=== PATIENT | female | born 1970 | race Caucasian/White ===

== ENCOUNTER 2024-03-03 01:22 | Emergency (ER) | payer OTHER, SELFPAY ==
[2024-03-03 01:25] VITALS: BP 134/100
[2024-03-03 02:48] LABS: % Basophils 0.4 % (0-2); % Eosinophils 1.7 % (0-6); % Immature Granulocytes 0.2 % (0-0.5); % Lymphocytes 18.7 % (20.5-51.1); % Monocytes 5.6 % (1.7-9.3); % Neutrophils 73.4 % (42.2-75.2); Absolute Basophils 0.1 10^3/uL (0-0.2); Absolute Eosinophils 0.2 10^3/uL (0-0.7); Absolute Lymphocytes 2.3 10^3/uL (1.2-3.4); Absolute Monocytes 0.7 10^3/uL (0.1-0.6); Absolute Neutrophils 8.8 10^3/uL (1.4-6.5); Hematocrit 37.7 % (37.0-47.0); Hemoglobin 12.2 g/dL (12.0-16.0); Mean Corp Hgb Conc. 32.4 g/dL (33.0-37.0); Mean Corpuscular Hgb 25.9 pg (27.0-31.0); Mean Platelet Volume 10.1 fL (7.4-10.4); Nucleated Red Blood Cells % 0 %; Platelet Count 250 10^3/uL (130-400); Red Blood Cell Count 4.71 10^6/uL (4.20-5.40); Red Cell Dist. Width 14.3 % (11.5-14.5); White Blood Cell Count 12.1 10^3/uL (4.8-10.8)
[2024-03-03 03:07] LABS: ALT (SGPT) 28 U/L (0-35); AST (SGOT) 19 U/L (14-36); Albumin 4.2 g/dl (3.5-5.0); Alkaline Phosphatase 119 U/L (38-126); Blood Urea Nitrogen 18 mg/dl (7-17); Carbon Dioxide 25 mmol/L (22-30); Chloride 103 mmol/L (98-107); Glucose 109 mg/dl (70-99); Potassium 4.1 mmol/L (3.5-5.1); Sodium 139 mmol/L (135-145); Total Bilirubin 0.5 mg/dl (0.2-1.3); Total Protein 7.1 g/dl (6.3-8.2); eGFR > 60.00
[2024-03-03 03:12] LABS: Troponin I < 0.012 ng/ml
[2024-03-03 04:22] VITALS: BMI 35.2
--- NOTE | 2024-03-03 04:24 | EDRN ---
Around 0100, pt woke and had chest pain described as pressure. Pt with hx of indigestion but reports this felt different. Pt had chills. Pain is still present but better, rated as 6/10. Pt took 1 baby aspirin. Daughter adds pt had chest pain
the day before and also took a baby aspirin for that and it went away. Pt still has a cough from bronchitis she had 10 days ago. Pt points to mid upper and LUQ abdomen when asked if she has abd pain. No sob, n/v/d/c, urinary symptoms. Pt feels
her mouth is dry and has a bitter taste. Pt had turkey sandwich, glass of wine and orange/cranberry cake last night.
[2024-03-03 04:31] VITALS: BP 136/73
[2024-03-03 05:00] VITALS: BP 123/71
[2024-03-03 06:00] VITALS: BP 114/65
[2024-03-03 07:00] VITALS: BP 111/68
--- NOTE | 2024-03-03 07:15 | EDRN ---
Susan Bella PA in room w/pt at this time.
--- NOTE | 2024-03-03 07:25 | EDRN ---
Repeat troponin drawn and sent.
[2024-03-03 08:00] VITALS: BP 126/72
[2024-03-03 08:03] LABS: Troponin I < 0.012 ng/ml
--- NOTE | 2024-03-03 08:19 | ED.GENMED ---
History of Present Illness
General
Chief Complaint: Chest Pain
Time Seen by Provider: 03/03/24 07:09
History of Present Illness
History of Present Illness:
53-year-old female presents to the emergency department for evaluation of chest discomfort beginning at 1 AM and waking her up from sleep. She notes that for the past week to 2 weeks she has been dealing with 'bronchitis', was treated by urgent
care last week with steroids and inhalers. Denies any fevers but did have chills overnight. Chest pain has nearly subsided at this time. No nausea vomiting or diarrhea. Non-smoker
Review of Systems
Review of Systems
Allergies reviewed?: Yes
All Other Systems: ROS reviewed and negative except as documented in HPI and ROS
Phy Exam
Physical Exam
Physical Exam:
GEN: Well appearing, NAD, WDWN
HEENT: Oral mucosa moist, no scleral icterus
Cardiac: Regular rate and rhythm, no murmurs
Lung: No respiratory distress, no tachypnea, lungs clear to auscultation bilaterally
MSK: No gross deformity or injuries
Skin: Good color, no pallor or jaundice, no rashes
Neuro: AO x3, moves all extremities freely
Psych: Calm, cooperative
Scores
Heart Score for Chest Pain Patients
STEMI patient?: No
History: Slightly or Non-Suspicious
ECG: Normal
Age: >45 - <65 years
Risk Factors: 1 or 2 Risk Factors
Troponin: </= Normal Limit
Heart Score for Chest Pain Patients: 2
Heart Score Risk: 2.5% MACE over next 6 weeks
Course
Orders/Labs/Results
Orders:
Orders
03/03/24 01:23
Electrocardiogram (*1) Urgent
Reason for Study: Shortness of Breath
Chest [CR Chest - 2 Views ] Urgent
Comment:
Reason For Exam: SOB, RECENT BRONCHITIS
03/03/24 01:24
EKG- Treatment ONCE
03/03/24 02:29
Complete Blood Count/With Diff Urgent
Comprehensive Metabolic Panel Urgent
Troponin I Urgent
03/03/24 07:20
Electrocardiogram (*1) Urgent
Reason for Study: Chest Pain
EKG- Treatment ONCE
03/03/24 07:29
Troponin I Urgent
Abnormal Lab Results
03/03/24
02:29
WBC 12.1 H 10^3/uL
(4.8-10.8)
MCV 80.0 L fL
(81.0-99.0)
MCH 25.9 L pg
(27.0-31.0)
MCHC 32.4 L g/dL
(33.0-37.0)
Absolute Neuts (auto) 8.8 H 10^3/uL
(1.4-6.5)
Absolute Monos (auto) 0.7 H 10^3/uL
(0.1-0.6)
Lymphocytes % 18.7 L %
(20.5-51.1)
BUN 18 H mg/dl
(7-17)
Glucose 109 H mg/dl
(70-99)
03/03/24 02:29
03/03/24 02:29
Vital Signs
Initial and Last Documented VS:
Initial Vital Signs
Temp Pulse Resp BP Pulse Ox
99 F 86 24 134/100 98
03/03/24 01:25 03/03/24 01:25 03/03/24 01:25 03/03/24 01:25 03/03/24 01:25
Last Documented Vital Signs
Temp Pulse Resp BP Pulse Ox
98.6 F 77 16 126/72 97
03/03/24 04:35 03/03/24 08:00 03/03/24 08:00 03/03/24 08:00 03/03/24 08:00
MDM/Problems Addressed
MDM/Problems Addressed:
EKG initial and follow-up with both reassuring, initial and delta troponins are negative. Chest x-ray clear. May be musculoskeletal source of pain, doubt PE, no risk factors for this.
*Critical Care Note
Total Time (30-74mins, 75-104mins- exclusive of procedures): Not Applicable
ED Attending Note
-
Portions of this chart may have been created with voice recognition software.� Occasional wrong word or��sound alike� substitutions may have occurred due to the inherent limitations of voice recognition software.
Discharge Plan
Departure
Patient Disposition: Home (Routine Discharge)
Date of Disposition: 03/03/24
Time of Disposition: 08:19
Patient with high blood pressure during this ER visit?: No
Discharge Problem:
Atypical chest pain
Instructions: Chest Pain That Is Not Caused by the Heart (DC)
Prescriptions:
No Action
multivitamin Tablet
1 tab PO DAILY
sertraline 25 mg Tablet
25 mg PO DAILY
cholecalciferol (vitamin D3) [Vitamin D3] 25 mcg (1,000 unit) Capsule
25 mcg PO DAILY
aspirin 81 mg Capsule
81 mg PO DAILY
Referrals:
Luis Miguel Swenson DO [Family Provider] -
Activity Restrictions/Additional Instructions:
Your blood work was normal
There is no evidence that this is pain related to your heart
Please take 600mg ibuprofen every 6-8 hours for pain control
Interventions
Interventions:
*Risk Screen - Suicide Last Done: 03/03/24 01:25
*General Assessment Last Done: 03/03/24 04:22
*Neglect/Abuse Screening Last Done: 03/03/24 01:25
ED- Fall Risk Assessment Last Done: 03/03/24 07:30
*ED COVID-19 Vaccine History Last Done: 03/03/24 04:22
*Nursing Disposition Last Done: 03/03/24 08:38
ED- Cardiac Assessment Last Done: 03/03/24 07:30
Discharge Date and Time
Discharge Date/Time: 03/03/24 08:39
Print Language: GERMAN
== END 2024-03-03 08:39 | disposition home or self-care (01) ==
LOC: EMR 01:22
PROVIDERS: Emergency Medicine; Physician Assistant; EMERGENCY PHYSICIAN Emergency Medicine; FAMILY PHYSICIAN Internal Medicine
DX: R07.89 Other chest pain (principal)
CPT/HCPCS: 99285; 71046; 80053; 84484; 85025; 93005